=== PATIENT | female | born 1930 | race Caucasian/White ===

== ENCOUNTER 2017-02-20 12:39 | Emergency (ER) | payer MEDICARE, BC ==
[~2017-02-20] VITALS: Ht 157.5 cm; Wt 59.7 kg
[2017-02-20] MEDS ORDERED: SYNT75TA PO (12:52)
[2017-02-20] MEDS ORDERED: HYDR12.55 PO (12:52)
[2017-02-20 14:36] LABS: BASO % 0.3 % (0.0-1.0); EOS # 0.2 K/mm3 (0.0-0.50); EOS % 1.2 % (0.0-3.0); LARGE UNSTAINED CELL # 0.1 K/mm3 (0.0-0.4); LARGE UNSTAINED CELL % 0.8 % (0.0-4.0); LYMPH # 1.5 K/mm3 (1.5-4.5); MEAN CORPUSCULAR HEMOGLOBIN 30.4 pg (27.0-33.0); MEAN CORPUSCULAR HGB CONC 33.9 g/dl (32.0-36.5); MEAN CORPUSCULAR VOLUME 89.7 fl (80.0-96.0); MONO # 0.6 K/mm3 (0.0-0.8); NEUTROPHILS # 10.2 K/mm3 (1.8-7.7); NEUTROPHILS % 81.7 % (36.0-66.0); PLATELET COUNT, AUTOMATED 193 k/mm3 (150-450); RED CELL DISTRIBUTION WIDTH 13.7 % (11.5-14.5); WHITE BLOOD COUNT 12.5 K/mm3 (4.0-10.0)
--- NOTE | 2017-02-20 14:52 | REP ---
CT Head without contrast HISTORY: Syncope COMPARISON: None Areas of decreased attenuation are present in the periventricular white matter. This represents small-vessel ischemic disease. There is no intraparenchymal hemorrhage, acute infarct, mass or midline shift. The ventricular system and cortical sulci as well as subarachnoid space in the posterior fossa are dilated consistent with moderate volume loss. There is no extra cerebral collection. There is no fracture. The visualized sinuses are clear. IMPRESSION: 1. Small vessel ischemic disease. 2. Moderate volume loss. Signed by Alvaro Rees MD 02/20/2017 02:43 P
--- NOTE | 2017-02-20 15:08 | REP ---
PORTABLE CHEST, ONE VIEW: HISTORY: Syncope. A 1 cm parenchymal density is present in the left upper lobe. The right lung is clear. The heart is normal in size. The pulmonary vasculature is normal in appearance. IMPRESSION: There is a 1 cm parenchymal density in the left upper lobe. CT of the chest is recommended for further evaluation. Signed by Alvaro Rees MD 02/20/2017 03:21 P
[2017-02-20 15:18] LABS: CALCIUM LEVEL 9.5 MG/DL (8.8-10.2); CREATININE FOR GFR 1.03 MG/DL (0.55-1.02); FREE T4 1.44 NG/DL (0.76-1.46); GLOMERULAR FILTRATION RATE 54.2 (>32)
[2017-02-20] MEDS ORDERED: NS 1,000 ML IV SCH (15:30)
[2017-02-20] MEDS ORDERED: POTASSIUM CHLORIDE 10 MEQ SR TABLET PO ONE (15:30)
[2017-02-20 15:31] LABS: MAGNESIUM LEVEL 1.9 MG/DL (1.8-2.4)
[2017-02-20] MEDS ORDERED: POTASSIUM CHL PWD 20 MEQ PACKET PO ONE (15:45)
[2017-02-20] MEDS ORDERED: HEPARIN DRIP 25,000 UNITS in APPROPRIATE DILUENT 1 EA IV SCH (17:04)
[2017-02-20] MEDS ORDERED: HEPARIN SOD (PORCINE) 5000 UNITS/ML VIAL IV ONE (17:15)
[2017-02-20] MEDS ORDERED: ASPIRIN 325 MG TAB PO ONE (17:15)
[2017-02-20 18:37] VITALS: BP 185/72
--- NOTE | 2017-02-20 19:06 | ECGEPIP ---
Stationary ECG Study [facility] - ED Test Date: 2017-02-20 Pat Name: BRAD JOHNSON Department: Room: - Gender: F Director Skills: iona : 1930 Requested By: JANEL Hameed Order Number: [id number] Reading MD: Miryam Crabtree Measurements Intervals [place] Rate: 75 P: 57 NE: 212 QRS: -34 QRSD: 144 T: 47 QT: 480 QTc: 539 Interpretive Statements SINUS RHYTHM WITH FIRST DEGREE AV BLOCK MARKED LEFT AXIS DEVIATION LEFT BUNDLE BRANCH BLOCK CLINICAL CORRELATION NO PRIOR FOR COMPARISON Electronically Signed On 02-20-2017 19:06:40 EDT by Miryam Crabtree
== END 2017-02-20 18:42 | disposition short-term general hospital (02) ==
LOC: M ED 12:39
DX: I24.9 Acute ischemic heart disease, unspecified (principal); I10 Essential (primary) hypertension; E03.9 Hypothyroidism, unspecified; Z87.891 Personal history of nicotine dependence; R91.8 Other nonspecific abnormal finding of lung field; Z79.899 Other long term (current) drug therapy